=== PATIENT | female | born 1955 | race Caucasian/White ===

== ENCOUNTER → 2020-06-21 | Outpatient (CLI) | payer MEDICARE, BC ==
[~2020-06-21] MED LIST: CELEXA20 MG PO; DOCUSATE CALCI240 MG PO; ECOTRIN81 MG PO; EVISTA60 MG PO; GABAPENTIN600 MG PO; IBUPROFEN800 MG PO; MECLIZINE HCL25 MG PO; MELOXICAM15 MG PO; MOBIC15 MG PO; PERCOCET 7.5-31 EACH PO; TENORMIN 25 MG25 MG PO; ZOFRAN4 MG PO
== END ==
LOC: KOH-I 14:06
DX: M19.90 Unspecified osteoarthritis, unspecified site (principal); M79.671 Pain in right foot; M19.071 Primary osteoarthritis, right ankle and foot
CPT/HCPCS: 73630